=== PATIENT | male | born 1945 | race African-American/Black ===

== ENCOUNTER 2016-06-13 06:43 | Inpatient (IN) ==
[2016-06-13] MEDS ORDERED: *HR* Midazolam HCl 2 MG/2 ML VIAL ONE (07:19)
[2016-06-13] MEDS ORDERED: *HR* FentaNYL (PF) 100 MCG/2 ML VIAL ONE ×3 (07:19→10:52)
[2016-06-13] MEDS ORDERED: *HR* Propofol 200 MG/20 ML VIAL IVP ONE (07:20)
[2016-06-13] MEDS ORDERED: Vancomycin 1,500 MG in D5% in Water 250 ML IVPB ONE ×2 (07:21→19:00)
[2016-06-13] MEDS ORDERED: *HR* Succinylcholine 200 MG/10 ML VIAL IVP ONE (07:21)
[2016-06-13] MEDS ORDERED: CeFAZolin Pre 2,000 MG/100 ML 2,000 MG/100 ML BAG IVPB ONE (07:21)
[2016-06-13] MEDS ORDERED: Lidocaine -MPF 2% 2 ML VIAL ONE (07:21)
[2016-06-13] MEDS ORDERED: *HR* Phenylephrine 10 MG/ML VIAL ONE (07:23)
[2016-06-13] MEDS ORDERED: EPHEDrine 50 MG/ML VIAL ONE (07:30)
[2016-06-13] MEDS ORDERED: Ringers Solution, Lactated 1,000 ML IVC SCH (07:30)
[2016-06-13] MEDS ORDERED: *HR* Heparin 5,000 UNIT/ML VIAL ONE ×2 (07:32→10:57)
[2016-06-13] MEDS ORDERED: Lidocaine -MPF 4% 5 ML AMPUL ONE (07:36)
--- NOTE | 2016-06-13 07:36 | History & Physical Report ---
Date of Encounter: 06/13/16 Time of Encounter: 07:28 24 Hour HP Update - Instructions Instructions: If the History and Physical is less than 30 days old and was completed prior to A.M. admission and or procedure and has NOT been updated on calendar day of procedure please complete this update prior to performing procedure. - Update Patient reports changes in Medical Condition: No Changes in assessment/condition: No Changes in Medication: No Preop tests/diagnostics Reviewed: Yes Surgery Remains Indicated: Yes Consent for Planned Operative Procedure(s) Verified: Yes - Pre-Operative Checklist Preoperative Checklist Indicated: Yes Prophylactic Antibiotic Ordered: Yes (vancomycin due to mrsa risk) Home Medications Include Beta Yarely: Yes Beta Yarely Taken Today (Day of Surgery): Yes Beta Yarely Taken Yesterday (Day Prior to Surgery): Yes Is VTE Prophylaxis Indicated?: Yes
[2016-06-13] MEDS ORDERED: NiCARdipine 2.5 MG/10 ML Syringe IVPB ONE (07:45)
--- NOTE | 2016-06-13 07:49 | Anesthesia Evaluation PreOp ---
Date of Encounter: 06/13/16 Time of Encounter: 07:47 - Past History Planned Operation: r femoral endarterctomy Cardiac History: RI, HTN, Hyperlipidemia, Cardiac Surgery (3vCABG), Cardiac Stent, Other (PAD, [facility] 02/22: severe 3v cad, lv ef 54, s/p 3vCABG: medical therapy. echo: 02/22ef 55, nl rv, nl valves) Pulmonary History: LYDIA Dx [employer] History: TIA (prior to CEA, pt had confusion and l side facial parasthesias) , Other (ptsd. carotid doppler, l ica 40-59, frontal lobe dementia) Other Medical History: Renal (cri), Diabetes Type II Anesthesia History: No Prior Anesthetic Complications, Past Anesthesia (r cea, 3vcabg, acdf, le bypass) Alcohol Use: none Drug use: none Medications and Allergies Atorvastatin Calcium [Lipitor] 80 mg PO HS 02/28/16 [History] Cholecalciferol (D-3) [Vitamin D] 2,000 unit PO DAILY 02/28/16 [History] Clopidogrel [Plavix] 75 mg PO DAILY 02/28/16 [History] Docusate [Colace] 100 mg PO TID 02/28/16 [History] Donepezil [Aricept] 5 mg PO HS 02/28/16 [History] Ferrous Sulfate 325 mg PO DAILY 02/28/16 [History] Gabapentin [Neurontin] 800 mg PO BID 02/28/16 [History] Insulin ASPART [Novolog] 100 unit SQ TID 02/28/16 [History] Insulin Glargine,Hum.rec.anlog [Lantus Solostar] 55 unit SQ QAM 02/28/16 [ History] Lactobacillus Acidophilus [Acidophilus Probiotic] 1 mg PO DAILY 02/28/16 [ History] Lisinopril [Zestril] 40 mg PO DAILY 02/28/16 [History] Methyl Salicylate/Menthol [Thera-Gesic Plus Creme] 85 gm TP BID PRN 02/28/16 [ History] Metoprolol Tartrate 25 mg PO BID 02/28/16 [History] Nitroglycerin 0.4 mg SL Q5MIN PRN 02/28/16 [History] Primidone [Mysoline] 50 mg PO HS 02/28/16 [History] Ranitidine HCl [Heartburn Relief] 150 mg PO BID 02/28/16 [History] Sertraline [Zoloft] 50 mg PO DAILY 02/28/16 [History] Terbinafine HCl [Lamisil At] 24 gm TP DAILY PRN 02/28/16 [History] Trazodone HCl 150 mg PO QPM 02/28/16 [History] Acetaminophen [Tylenol] 1,000 mg PO Q6HR #90 tablet 04/17/16 [Rx] Isosorbide MONOnitrate (24 HR) [Imdur] 30 mg PO BID 04/17/16 [History] Ranolazine [Ranexa] 500 mg PO BID 04/17/16 [History] Allergies No Known Allergies Allergy (Unverified 02/14/16 09:08) - Meds/Allergy Pre-op Review Medications Reviewed: Yes Allergies Reviewed: Yes Beta Blockers on Current Med List: Yes If Beta Blockers taken, Date/Time (Last Dose taken): metoprolol at 0530 Anesthesia Results - Labs Laboratory Tests 06/11/16 06/11/16 06/11/16 11:59 11:59 11:59 Hgb 11.9 L Hct 36.7 L Plt Count 180 PT 13.1 H INR 1.2 APTT 33.1 Sodium 139 Potassium 4.6 H Creatinine 1.29 H - Imaging EKG: report reviewed (sr) Anesthesia Exam O2 Sat Height 1.78 m Height 1.78 m Height 1.78 m Weight 97.069 kg Weight 97.069 kg Weight 97.069 kg O2 Sat by Pulse Oximetry 95 O2 Sat by Pulse Oximetry 95 Vital Signs Temp Pulse Resp BP Pulse Ox 97.6 F 64 18 143/65 95 06/13/16 07:04 06/13/16 07:04 06/13/16 07:04 06/13/16 07:04 06/13/16 07:04 Blood glucose: 174 Height: 1.78 Weight: 97 NPO (# of Hours): >8 - HEENT Pupil (Motor): Pupils equal, EOMI Mallampati: III Teeth: Edentulous, Poor dentition Denture Type: Upper: Complete Oral Opening: Greater than 3 - [employer]OR LOC: Oriented [employer] Motor: Normal RUE, Normal LUE, Normal RLE, Normal LLE, Normal Face [employer]OR Sensory: Normal: RUE, LUE, RLE, LLE, Face - Cardiac Rhythm: Regular Murmur: None - Pulmonary Breath Sounds: bilateral Clear Respiratory Effort: Symmetrical Anesthesia Assess/Plan ASA Score: 4 Modified Julienne Scale for Level of Consciousness: Cooperative, oriented, and tranquil Anesthetic Plan: General Monitoring Plan: Standard Monitors, A-Line Recovery Plan: PACU
[2016-06-13] MEDS ORDERED: Vancomycin 1,000 MG VIAL ONE (08:00)
[2016-06-13] MEDS ORDERED: Heparin 1,000 UNITS/500 mL NS 500 ML ONE ×2 (08:00→08:16)
[2016-06-13] MEDS ORDERED: Ondansetron 4 MG/2 ML VIAL ONE (12:12)
[2016-06-13] MEDS ORDERED: *HR* HYDROmorphone (PF) 1 MG/ML SYRINGE IVP PRN (12:53)
--- NOTE | 2016-06-13 13:12 | Operative Note ---
Date of procedure: 06/13/16 Pre-op diagnosis: Peripheral vascular disease with disabling claudication Post-op diagnosis: same Procedure: 1. Right iliofemoral endarterectomy with bovine pericardial patch angioplasty. 2. Right superficial femoral endarterectomy with bovine pericardial patch angioplasty. 3. Right deep femoral endarterectomy. Complications: None Anesthesia: KHANG Surgeon: Irvin Shaw Estimated blood loss (cc): 100 Specimen: Right lower extremity plaque Condition: stable Disposition: PACU Procedure in Detail: Indications: The patient is a 71 year old male with multiple medical comorbidities including hypertension, hyperlipidemia, diabetes, coronary artery disease and chronic anemia. The patient also has a history of peripheral vascular disease. He reported disabling right lower extremity claudication. An angiogram revealed right extrenal iliac, common femoral, deep femoral and superficial femoral artery high grade irregular stenoses. Revascularization was recommended for symptomatic relief. Procedure: The patient was identified in the preoperative area. The risks, benefits, and alternatives of procedure were discussed and all questions were answered. He was taken to the operating room and placed in supine position on the operating room table. After the induction of general endotracheal anesthesia, he was cleaned and draped in normal sterile fashion. An oblique incision was made along the right groin sharply. Hemostasis was obtained with electrocautery. Through a process of blunt and sharp electrocautery dissection , the skin and subcutaneous tissues were incised and the mid to distal external iliac artery was dissected underneath the inguinal ligament and a vessel loop was passed around it. The common femoral artery, deep femoral artery and superficial femoral artery were dissected circumferentially and surrounded with vessel loops. The vessels were noted to be firm and heaviliy calcified. 4 separate prolene suture from prior perclose devices were present in the common femoral artery. Significant associated inflammation as a result of many prior catheterisations made dissection prolonged an difficult. The superficial femoral artery was palpated and the dissection was extended distally until it was noted to be soft without significant plaque. A vessel loop was then used to surround the artery. The patient received 5000 units of heparin intravenously and additional heparin throughout the case to maintain adequate anticoagulation. The vessels were occluded. A longitudinal arteriotomy was made sharply into the common femoral artery. It was extended under the inguinal ligament into the external iliac artery proximally. It was then extended into the superficial femoral artery distally. Using a dental freer, an endarterectomy was performed from the external iliac artery through the common femoral artery. The plaque was irregular and hevily calficied. Proximally, the lumen became patent without significant stenosis. The plaque was excised sharply and no elevated flaps were noted at the endpoint. Distally, the plaque was excised at the deep femoral artery. Using a dental freer, the plaque was circumferentially excised from the deep femoral artery using an eversion technique. Release of the loop revealed significant retrograde flow. The loop was tightened. Using the dental freer, a superficial femoral endarterectomy was performed on the irregular, high grade stenotic plaque. The dissection was continued for several centimeters until the lumen was patent without significant stenosis. The plaque was excised and no elevated flap was noted. Retrograde flow was noted through the superficial femoral artery on release of the loop. The loop was tightened. The lumen was irrigated with heparinzed saline. A bovine pericardial patch was cut to fit the defects in the external iliac, common femoral and superficial femoral arteries. The patch was sutured in place with running 6-0 Prolene. Prior to completing the patch anastomosis, each vessel was flushed individually, then reoccluded. Heparinized saline was infused into the lumen. The patch was completed and flow was restored. Thrombin and Gelfoam were used to aid in hemostasis. Polyphasic signal was noted distal to the distal end of the patch as well as the posterior tibial artery. Wound was irrigated with antibiotic-containing saline. Platelet-rich and platelet-poor plasma were infused into the wound. The wounds were reapproximated with layer of 2-0 Vicryl followed by two layers of 3-0 and Vicryl 3-0 Monocryl in the subcuticular layer. Sterile dressings were applied. The patient was extubated and taken to recovery room in stable condition.
--- NOTE | 2016-06-13 13:29 | Anesthesia Evaluation Post Op ---
Date of Encounter: 06/13/16 Time of Encounter: 13:28 - Vital Signs Vital Signs: Vital Signs/O2 Sat/Glucose, Most Current Temp Pulse Resp BP Pulse Ox 06/13/16 13:20 98.5 F 67 14 131/63 94 L 06/13/16 13:10 74 14 132/69 96 06/13/16 13:00 69 14 141/67 96 06/13/16 12:50 98.9 F 71 14 151/65 97 - Lungs Lungs: Clear Ascult./Percussion - Airway Airway: Non-obstructed - Cardiovascular Regular Rate - Mental Status Mental Status: Asleep with brisk response to light stimulation - Pain Pain Scale: 0 - Nausea Vomiting Nausea Vomiting: Not Present - Hydration Hydration: Ice chips - Discharge PostOp Status: Transfer Patient to floor
[2016-06-13] MEDS ORDERED: Clotrimazole 1% CRM 15 GM TUBE TP PRN (13:46)
[2016-06-13] MEDS ORDERED: *HR* Labetalol 20 MG/4 ML SYRINGE IVP PRN (13:46)
[2016-06-13] MEDS ORDERED: Ondansetron 4 MG/2 ML VIAL IVP PRN (13:46)
[2016-06-13] MEDS ORDERED: *HR* Promethazine 25 MG/ML VIAL IVP PRN (13:46)
[2016-06-13] MEDS ORDERED: D5% in Water 1,000 ML IV PRN (13:46)
[2016-06-13] MEDS ORDERED: *HR* Morphine 2 MG/ML SYRINGE IVP PRN (13:46)
[2016-06-13] MEDS ORDERED: Nitroglycerin 0.4 MG TAB.SUBL SL PRN (13:46)
[2016-06-13] MEDS ORDERED: Acetaminophen 325 MG TABLET PO PRN (13:46)
[2016-06-13] MEDS ORDERED: *HR* HYDROcodone/Acet 5/325 mg TABLET PO PRN (13:46)
[2016-06-13] MEDS ORDERED: Naloxone 0.4 MG/ML INJ IVP PRN (13:46)
[2016-06-13] MEDS ORDERED: Dextrose Gel 15 GM PO PRN ×2 (13:46)
[2016-06-13] MEDS ORDERED: *HR* Dextrose 50 % in Water (Syg) 50 ML SYRINGE IVP PRN (13:46)
[2016-06-13] MEDS ORDERED: ceFAZolin 2,000 MG in D5% in Water 100 ML IVPB SCH (14:30)
[2016-06-13] MEDS ORDERED: 0.9 % Sodium Chloride 1,000 ML ONE (14:42)
[2016-06-13] MEDS: ceFAZolin 2,000 MG in D5% in Water 100 ML IVPB SCH ×2 (15:56→23:30)
[2016-06-13] MEDS: Insulin LISPRO 300 UNITS/3 ML VIAL SQ SCH (16:38)
[2016-06-13] MEDS: *HR* Metoprolol 5 MG/5 ML VIAL IVP SCH ×2 (17:38→23:30)
[2016-06-13] MEDS ORDERED: *HR* Heparin 5,000 UNIT/ML VIAL SQ SCH (18:00)
[2016-06-13] MEDS ORDERED: traZODone 50 MG TABLET PO SCH (18:00)
[2016-06-13] MEDS: Gabapentin 400 MG CAPSULE PO SCH (19:23)
[2016-06-13] MEDS: Ranolazine 500 MG TAB.ER.12H PO SCH (19:23)
[2016-06-13] MEDS: Famotidine 20 MG TABLET PO SCH (19:23)
[2016-06-13] MEDS: *HR* OxyCODONE Immed Rel 5 MG TABLET PO PRN (19:30)
[2016-06-13] MEDS ORDERED: Insulin LISPRO 300 UNITS/3 ML VIAL SQ SCH (21:00)
[2016-06-14] MEDS: *HR* Metoprolol 5 MG/5 ML VIAL IVP SCH (05:29)
[2016-06-14 05:45] LABS: Basophils % 0.5 %; Eosinophils # 0.1 K/mcL (0.0-0.6); Eosinophils % 1.6 %; Hematocrit 32.2 % (37.5-50.1); Hemoglobin 10.3 g/dL (12.9-16.9); Immature Granulocytes % 0.3 % (0-4); Lymphocytes # 0.8 K/mcL (0.6-4.6); Lymphocytes % 12.3 %; Mean Corpuscular Hemoglobin 27.5 pg (28.0-33.3); Mean Corpuscular Volume 85.9 fL (83.0-100.0); Mean Platelet Volume 9.9 fL (9.4-12.4); Monocytes # 0.6 K/mcL (0.0-1.3); Monocytes % 10.4 %; Neutrophils # 4.6 K/mcL (1.6-8.9); Platelet Count 135 K/mcL (140-400); Red Blood Count 3.75 M/mcL (4.19-5.50); Red Cell Distribution Width 14.1 % (11.5-14.5); Segmented Neutrophils % 74.9 %
[2016-06-14 05:55] LABS: BUN/Creatinine Ratio 13 (6-26); Blood Urea Nitrogen 15 mg/dL (8-26); Calcium 8.4 mg/dL (8.6-10.8); Carbon Dioxide 25 mEq/L (19-29); Chloride 105 mEq/L (98-109); Glucose 182 mg/dL (70-99); Osmolality,Calculated 289 (280-300); Potassium 4.3 mEq/L (3.5-4.5); Sodium 137 mEq/L (136-145); eGFR For African Americans > 60 (> 60); eGFR For Non-African Americans > 60 (> 60)
[2016-06-14] MEDS ORDERED: *HR* Heparin 5,000 UNIT/ML VIAL SQ SCH (06:00)
--- NOTE | 2016-06-14 07:00 | Discharge Summary ---
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 He reports improvement in his symptoms. His pedal signals are present. His incision is healing without hematoma. He will be discharged today. (2) Diabetes mellitus with peripheral angiopathy without gangrene Priority: Secondary Status: Chronic Comments: He was counseled regarding atherosclerotic risk factor reduction. Qualifiers: Diabetes mellitus type: type 2 Diabetes mellitus jail insulin use: with intermediate teacher use Qualified Code(s): E11.51 - Type 2 diabetes mellitus with diabetic peripheral angiopathy without gangrene; Z79.4 - long-term (current) use of insulin (3) CAD (coronary artery disease) Priority: Secondary Status: Chronic Qualifiers: Coronary Disease-Associated Artery/Lesion type: [place] artery [place] vs. 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 He is hemodynamically stable without evidence of ongoing blood loss. - Discharge Medications Prescriptions: OxyCODONE Immed Rel [Roxicodone 5 MG] 5 mg PO Q4H PRN #40 tablet PRN Reason: postoperative pain Home Medications: Atorvastatin Calcium [Lipitor] 80 mg PO HS 02/28/16 [History] Cholecalciferol (D-3) [Vitamin D] 1,000 unit PO DAILY 02/28/16 [History] Clopidogrel [Plavix] 75 mg PO HS 02/28/16 [History] Docusate [Colace] 300 mg PO DAILY 02/28/16 [History] Donepezil [Aricept] 5 mg PO HS 02/28/16 [History] Ferrous Sulfate 325 mg PO Q48H 02/28/16 [History] Gabapentin [Neurontin] 800 mg PO BID 02/28/16 [History] Insulin ASPART [Novolog] 10 unit SQ QAM 02/28/16 [History] Insulin Glargine,Hum.rec.anlog [Lantus Solostar] 60 unit SQ QAM 02/28/16 [ History] Lisinopril [Zestril] 40 mg PO DAILY 02/28/16 [History] Metoprolol Tartrate 25 mg PO BID 02/28/16 [History] Nitroglycerin 0.4 mg SL Q5MIN PRN 02/28/16 [History] Ranitidine HCl [Heartburn Relief] 150 mg PO BID 02/28/16 [History] Sertraline [Zoloft] 50 mg PO DAILY 02/28/16 [History] Terbinafine HCl [Lamisil At] 24 gm TP DAILY PRN 02/28/16 [History] Trazodone HCl 150 mg PO QPM 02/28/16 [History] Ranolazine [Ranexa] 500 mg PO BID 04/17/16 [History] Amlodipine Besylate 10 mg PO DAILY 06/13/16 [History] Ascorbate Calcium [Vitamin C] 500 mg PO DAILY 06/13/16 [History] Insulin ASPART [NovoLOG] 14 unit SQ 1200 06/13/16 [History] Insulin ASPART [NovoLOG] 20 unit SQ QPM 06/13/16 [History] Isosorbide MONOnitrate (24 HR) [Imdur] 60 mg PO DAILY 06/13/16 [History] OxyCODONE Immed Rel [Roxicodone 5 MG] 5 mg PO Q4H PRN #40 tablet 06/14/16 [Rx] Allergies/Adverse Reactions: Allergies No Known Allergies Allergy (Verified 06/13/16 08:00) Date of admission: 06/13/16 13:45 Primary care physician: PCP TRACIE Procedure(s) Performed: Right femoral endarterectomy Discharging clinician: Irvin Shaw Anticipated date of discharge: 06/14/16 - Patient Status Disposition: Home, Self-Care Condition: Good Functional capacity at discharge: independent ambulation Overall status at discharge: patient is back to baseline - Discharge Instructions Follow Up With: [facility]Primary Care Provider[facility] - Irvin Shaw MD [Partnered Physician] - 07/30/16 2:20 pm Additional Instructions: May remove bandage and shower on 06/15/16. Wash wound gently and pat to dry. Apply dry gauze to wound daily for 7 days. No tub baths or swimming until 07/08/16. Call [phone] with questions or concerns. - Diet and Activity Activity: increase activity as tolerated Diet: diabetic diet - Hospital Course Hospital course: Mr. Pimentel is a 71 year old male with multiple medical comorbidities who was found to have peripheral vascular disease with disabling right lower extremity claudication. He underwent a right femoral endarterectomy on 06/13/16. He tolerated the procedure well. He was discharged on 06/14/16 without complications. - Time Spent with Patient Total time spent providing and/or coordinating discharge services: Exam Vital Signs, Last 4 Hours Temp Pulse Resp BP Pulse Ox 06/14/16 04:29 98.8 F 06/14/16 04:10 73 16 157/66 94 L General: Present: Conversant, No Apparent Distress HEENT: Present: Pupils equal Cardiac: Present: Reg Rate and Rhythm, Normal S1 and S2 Lungs: Present: Normal Breath Sounds, No Wheeze, Rales, Rhonchi Neuro: Present: Alert and responsive, No focal deficits noted, Motor nerves grossly intact, Sensory nerves grossly intact Abdomen: Present: Soft, Non-tender Vascular: Present: Normal capillary refill, Surgical incisions (incision clean and dry without hematoma). Absent: Cyanosis, Edema Skin: Present: No rashes noted on visualized skin - VTE Documentation of Mechanical Device: Intermittent pneumatic compression device
[2016-06-14 07:07] VITALS: BP 174/79
[2016-06-14] MEDS: Insulin LISPRO 300 UNITS/3 ML VIAL SQ SCH (08:32)
[2016-06-14] MEDS: Gabapentin 400 MG CAPSULE PO SCH (08:34)
[2016-06-14] MEDS: Ranolazine 500 MG TAB.ER.12H PO SCH (08:34)
[2016-06-14] MEDS: Famotidine 20 MG TABLET PO SCH (08:34)
[2016-06-14] MEDS ORDERED: *HR* Metoprolol 5 MG/5 ML VIAL IVP SCH (09:00)
[2016-06-14] MEDS ORDERED: Lisinopril 20 MG TABLET PO SCH (09:00)
[2016-06-14] MEDS ORDERED: Isosorbide MONOnitrate (24 HR) 60 MG TAB.ER.24H PO SCH (09:00)
[2016-06-14] MEDS ORDERED: Cholecalciferol (D-3) 1,000 UNIT TABLET PO SCH (09:00)
[2016-06-14] MEDS ORDERED: Ascorbic Acid 500 MG TABLET PO SCH (09:00)
[2016-06-14] MEDS ORDERED: amLODIPine 5 MG TABLET PO SCH (09:00)
[2016-06-14] MEDS: *HR* OxyCODONE Immed Rel 5 MG TABLET PO PRN (10:10)
== END 2016-06-14 10:30 | disposition home or self-care (01) | DRG 271 ==
LOC: SAMDAY 06:43 → 2NNU 13:45
PROVIDERS: ADMIT Surgery; ATTEND Surgery

== ENCOUNTER 2019-06-13 10:33 | Observation (INO) ==
[2019-06-13 11:07] LABS: Hematocrit 32.1 % (37.5-50.1); Hemoglobin 10.6 g/dL (12.9-16.9); Mean Corpuscular Hemoglobin 28.9 pg (28.0-33.3); Mean Corpuscular Volume 87.5 fL (83.0-100.0); Mean Platelet Volume 10.4 fL (9.4-12.4); Platelet Count 143 K/mcL (140-400); Red Blood Count 3.67 M/mcL (4.19-5.50); Red Cell Distribution Width 13.9 % (11.5-14.5); White Blood Count 5.1 K/mcL (4.3-11.1)
[2019-06-13] MEDS ORDERED: Isovue-370 500 ML BOTTLE IVP ONE (11:14)
[2019-06-13 11:30] LABS: BUN/Creatinine Ratio 21 (6-26); Blood Urea Nitrogen 29 mg/dL (8-23); Calcium 8.4 mg/dL (8.6-10.3); Carbon Dioxide 28 mEq/L (23-29); Chloride 102 mEq/L (98-107); Glucose 341 mg/dL (70-105); Osmolality,Calculated 299 (280-300); Potassium 4.9 mEq/L (3.5-5.1); Sodium 135 mEq/L (136-145); Troponin I < 0.03 ng/mL (< 0.04); eGFR For African Americans > 60 (> 60); eGFR For Non-African Americans 51 (> 60)
[2019-06-13 11:33] LABS: INR 1.3; Prothrombin Time 14.3 Seconds (9.4-12.1)
[2019-06-13 11:35] LABS: Activated Partial Thrombo Time 34.6 Seconds (26.0-36.0)
[2019-06-13] MEDS ORDERED: Acetaminophen 325 MG TABLET PO PRN (14:20)
[2019-06-13] MEDS ORDERED: Ondansetron 4 MG/2 ML VIAL IVP PRN (14:20)
[2019-06-13] MEDS: traZODone 50 MG TABLET PO SCH (18:32)
[2019-06-13] MEDS: Famotidine 20 MG TABLET PO SCH (18:33)
[2019-06-13] MEDS: *HR* Heparin 5,000 UNIT/ML VIAL SQ SCH (21:22)
[2019-06-13] MEDS: Ranolazine 500 MG TAB.ER.12H PO SCH (21:22)
[2019-06-13] MEDS: Insulin DETEMIR 100 UNIT/ML X5UNITS SQ SCH (21:38)
[2019-06-13] MEDS ORDERED: D5% in Water 1,000 ML IVC PRN (23:39)
[2019-06-13] MEDS ORDERED: *HR* Dextrose 50 % in Water (Syg) 50 ML SYRINGE IVP PRN (23:39)
[2019-06-13] MEDS ORDERED: Dextrose Gel 15 GM/37.5 ML TUBE PO PRN ×2 (23:39)
[2019-06-14] MEDS: Insulin LISPRO 300 UNITS/3 ML VIAL SQ SCH ×5 (00:15→21:32)
[2019-06-14 05:36] LABS: Hematocrit 34.5 % (37.5-50.1); Mean Corpuscular HGB Conc 31.9 g/dL (31.6-35.5); Mean Corpuscular Hemoglobin 28.4 pg (28.0-33.3); Mean Corpuscular Volume 88.9 fL (83.0-100.0); Mean Platelet Volume 10.6 fL (9.4-12.4); Platelet Count 150 K/mcL (140-400); Red Blood Count 3.88 M/mcL (4.19-5.50); Red Cell Distribution Width 14.1 % (11.5-14.5); White Blood Count 4.7 K/mcL (4.3-11.1)
[2019-06-14] MEDS: *HR* Heparin 5,000 UNIT/ML VIAL SQ SCH ×3 (05:48→21:11)
[2019-06-14 06:05] LABS: BUN/Creatinine Ratio 18 (6-26); Blood Urea Nitrogen 19 mg/dL (8-23); Carbon Dioxide 26 mEq/L (23-29); Chloride 105 mEq/L (98-107); Cholesterol 95 mg/dL (< 200); Glucose 129 mg/dL (70-105); HDL Cholesterol 19 mg/dL (40-59); LDL Cholesterol,Calculated 34 mg/dL (0-99); Magnesium 1.9 mg/dL (1.6-2.6); Osmolality,Calculated 294 (280-300); Sodium 140 mEq/L (136-145); Triglycerides 212 mg/dL (< 150); Troponin I < 0.03 ng/mL (< 0.04); eGFR For African Americans > 60 (> 60); eGFR For Non-African Americans > 60 (> 60)
[2019-06-14] MEDS: Ranolazine 500 MG TAB.ER.12H PO SCH ×2 (09:24→21:19)
[2019-06-14] MEDS: amLODIPine 5 MG TABLET PO SCH (09:24)
[2019-06-14] MEDS: Famotidine 20 MG TABLET PO SCH ×2 (09:24→16:29)
[2019-06-14] MEDS: Isosorbide MONOnitrate (24 HR) 60 MG TAB.ER.24H PO SCH (09:24)
[2019-06-14] MEDS ORDERED: Perflutren Lipid Microsphere 1.3 ML in 0.9 % Sodium Chloride 8.7 ML IVP ONE (10:33)
[2019-06-14] MEDS: traZODone 50 MG TABLET PO SCH (21:10)
[2019-06-14] MEDS: Insulin DETEMIR 100 UNIT/ML X5UNITS SQ SCH (21:19)
[2019-06-15] MEDS: Insulin LISPRO 300 UNITS/3 ML VIAL SQ SCH ×2 (00:26→08:30)
[2019-06-15] MEDS: *HR* Heparin 5,000 UNIT/ML VIAL SQ SCH (06:02)
[2019-06-15] MEDS: Famotidine 20 MG TABLET PO SCH (08:30)
[2019-06-15 08:33] VITALS: BP 150/91
[2019-06-15] MEDS: Ranolazine 500 MG TAB.ER.12H PO SCH (08:36)
[2019-06-15] MEDS: amLODIPine 5 MG TABLET PO SCH (08:36)
[2019-06-15] MEDS: Isosorbide MONOnitrate (24 HR) 60 MG TAB.ER.24H PO SCH (08:36)
== END 2019-06-15 09:45 ==
LOC: EMEROOARM 10:33 → 3ANU 10:33 → SUATTDRO 15:16 → 3ANU 15:36
PROVIDERS: ADMIT Internal Medicine; ATTEND Internal Medicine

== ENCOUNTER 2019-08-11 22:49 | Inpatient (IN) ==
[2019-08-11 23:31] LABS: Basophils % 0.4 %; Eosinophils # 0.1 K/mcL (0.0-0.6); Eosinophils % 0.7 %; Hematocrit 33.1 % (37.5-50.1); Hemoglobin 10.2 g/dL (12.9-16.9); Immature Granulocytes % 0.4 % (0-4); Lymphocytes # 0.9 K/mcL (0.6-4.6); Lymphocytes % 12.1 %; Mean Corpuscular HGB Conc 30.8 g/dL (31.6-35.5); Mean Corpuscular Hemoglobin 26.8 pg (28.0-33.3); Mean Corpuscular Volume 86.9 fL (83.0-100.0); Monocytes # 0.8 K/mcL (0.0-1.3); Monocytes % 10.9 %; Neutrophils # 5.8 K/mcL (1.6-8.9); Platelet Count 172 K/mcL (140-400); Red Blood Count 3.81 M/mcL (4.19-5.50); Red Cell Distribution Width 14.9 % (11.5-14.5); Segmented Neutrophils % 75.5 %; White Blood Count 7.6 K/mcL (4.3-11.1)
[2019-08-11 23:39] LABS: INR 1.3; Prothrombin Time 14.4 Seconds (9.4-12.1)
[2019-08-11 23:52] LABS: Alanine Aminotransferase 12 Units/L (7-52); Albumin 3.7 g/dL (3.5-5.7); Albumin/Globulin Ratio 1.3 (1.1-2.2); Alkaline Phosphatase 43 Units/L (34-104); Aspartate Amino Transferase 18 Units/L (13-39); BUN/Creatinine Ratio 28 (6-26); Bilirubin,Total 0.5 mg/dL (0.3-1.0); Blood Urea Nitrogen 31 mg/dL (8-23); Calcium 8.9 mg/dL (8.6-10.3); Carbon Dioxide 27 mEq/L (23-29); Chloride 108 mEq/L (98-107); Globulin 2.9 g/dL (2.4-3.5); Glucose 166 mg/dL (70-105); Osmolality,Calculated 304 (280-300); Potassium 3.7 mEq/L (3.5-5.1); Sodium 142 mEq/L (136-145); Total Protein 6.6 g/dL (6.4-8.9); eGFR For African Americans > 60 (> 60); eGFR For Non-African Americans > 60 (> 60)
[2019-08-11 23:55] LABS: Troponin I 0.15 ng/mL (< 0.04)
[2019-08-12] MEDS ORDERED: Ondansetron 4 MG/2 ML VIAL IVP PRN (00:04)
[2019-08-12] MEDS ORDERED: Naloxone 0.4 MG/ML INJ IVP PRN (00:04)
[2019-08-12] MEDS ORDERED: Aspirin 325 MG TABLET PO ONE (00:08)
[2019-08-12 00:40] LABS: Bilirubin,Urine Moderate (Negative); Blood,Urine Negative (Negative); Clarity,Urine Clear (Clear); Color,Urine Dark Yellow (Yellow); Glucose,Urine (UA) Normal (Normal); Ketones,Urine 15 mg/dL (Negative); Leukocyte Esterase,Urine Small (Negative); Nitrite,Urine Negative (Negative); PH,Urine 5.5 pH Units (5.0-8.0); Protein,Urine 30 mg/dL (Neg-Trace); Specific Gravity,Urine > 1.030 (1.010-1.025); Urobilinogen,Urine Normal (Normal)
[2019-08-12] MEDS ORDERED: Dextrose Gel 15 GM/37.5 ML TUBE PO PRN ×2 (00:41)
[2019-08-12] MEDS ORDERED: *HR* Dextrose 50 % in Water (Syg) 50 ML SYRINGE IVP PRN (00:41)
[2019-08-12] MEDS ORDERED: D5% in Water 1,000 ML IVC PRN (00:41)
[2019-08-12 00:43] LABS: Bacteria,Urine None Seen per hpf (None-Few); Hyaline Casts,Urine None Seen per lpf (None-Few); Squamous Epithelial Cell,Urine Moderate per lpf (None-Few); WBC,Urine 0-3 per hpf (0-3)
[2019-08-12] MEDS: Ringers Solution, Lactated 1,000 ML IVC SCH ×2 (02:30→16:34)
[2019-08-12 05:47] LABS: Basophils % 0.3 %; Eosinophils # 0.1 K/mcL (0.0-0.6); Eosinophils % 0.8 %; Hematocrit 29.2 % (37.5-50.1); Hemoglobin 9.1 g/dL (12.9-16.9); Immature Granulocytes % 0.3 % (0-4); Lymphocytes # 1.1 K/mcL (0.6-4.6); Lymphocytes % 16.1 %; Mean Corpuscular HGB Conc 31.2 g/dL (31.6-35.5); Mean Corpuscular Hemoglobin 27.2 pg (28.0-33.3); Mean Corpuscular Volume 87.2 fL (83.0-100.0); Mean Platelet Volume 9.8 fL (9.4-12.4); Monocytes # 0.8 K/mcL (0.0-1.3); Monocytes % 12.1 %; Neutrophils # 4.6 K/mcL (1.6-8.9); Platelet Count 141 K/mcL (140-400); Red Blood Count 3.35 M/mcL (4.19-5.50); Red Cell Distribution Width 14.9 % (11.5-14.5); Segmented Neutrophils % 70.4 %; White Blood Count 6.5 K/mcL (4.3-11.1)
[2019-08-12 06:10] LABS: BUN/Creatinine Ratio 29 (6-26); Blood Urea Nitrogen 32 mg/dL (8-23); Calcium 8.6 mg/dL (8.6-10.3); Carbon Dioxide 29 mEq/L (23-29); Chloride 109 mEq/L (98-107); Glucose 158 mg/dL (70-105); Magnesium 2.2 mg/dL (1.6-2.6); Osmolality,Calculated 306 (280-300); Sodium 143 mEq/L (136-145); eGFR For African Americans > 60 (> 60); eGFR For Non-African Americans > 60 (> 60)
[2019-08-12] MEDS ORDERED: Insulin LISPRO 300 UNITS/3 ML VIAL SQ SCH ×2 (07:30→21:00)
[2019-08-12] MEDS ORDERED: Lactulose Oral Soln 20 GM/30 ML UDC PO PRN (07:56)
[2019-08-12] MEDS ORDERED: Metoprolol XL (24 HR) Succ 25 MG TAB.ER.24H PO SCH (09:00)
[2019-08-12] MEDS: Ranolazine 500 MG TAB.ER.12H PO SCH ×2 (09:17→22:38)
[2019-08-12] MEDS: Artificial Tears SOLN 15 ML BOTTLE BOTH EYES SCH ×4 (09:24→22:37)
[2019-08-12] MEDS: Insulin LISPRO 300 UNITS/3 ML VIAL SQ SCH ×3 (09:24→17:32)
[2019-08-12] MEDS ORDERED: Haloperidol Lactate 5 MG/ML VIAL IVP PRN (11:02)
[2019-08-12 12:43] LABS: Adenovirus Not Detected (Not Detect); Bordetella Pertussis Not Detected (Not Detect); Chlamydophila pneumoniae Not Detected (Not Detect); Coronavirus 229E Not Detected (Not Detect); Coronavirus HKU1 Not Detected (Not Detect); Coronavirus NL63 Not Detected (Not Detect); Coronavirus OC43 Not Detected (Not Detect); Human Metapneumovirus Not Detected (Not Detect); Human Rhinovirus/Enterovirus Not Detected (Not Detect); Influenza A Subtype 2009 H1 Not Detected (Not Detect); Influenza B Not Detected (Not Detect); Mycoplasma pneumoniae Not Detected (Not Detect); Parainfluenza Virus 1 Not Detected (Not Detect); Parainfluenza Virus 2 Not Detected (Not Detect); Parainfluenza Virus 3 Not Detected (Not Detect); Parainfluenza Virus 4 Not Detected (Not Detect); Respiratory Syncytial Virus Not Detected (Not Detect)
[2019-08-12] MEDS ORDERED: Morphine Sulfate 2 MG/ML SYRINGE IVP ONE (20:17)
[2019-08-13] MEDS: Insulin LISPRO 300 UNITS/3 ML VIAL SQ SCH ×5 (02:02→20:51)
[2019-08-13 02:37] LABS: Basophils % 0.5 %; Eosinophils # 0.1 K/mcL (0.0-0.6); Eosinophils % 1.4 %; Hemoglobin 8.6 g/dL (12.9-16.9); Immature Granulocytes % 0.3 % (0-4); Lymphocytes # 0.8 K/mcL (0.6-4.6); Lymphocytes % 13.7 %; Mean Corpuscular HGB Conc 30.7 g/dL (31.6-35.5); Mean Corpuscular Hemoglobin 27.6 pg (28.0-33.3); Mean Corpuscular Volume 89.7 fL (83.0-100.0); Mean Platelet Volume 9.6 fL (9.4-12.4); Monocytes # 0.7 K/mcL (0.0-1.3); Monocytes % 11.7 %; Neutrophils # 4.2 K/mcL (1.6-8.9); Platelet Count 128 K/mcL (140-400); Red Blood Count 3.12 M/mcL (4.19-5.50); Segmented Neutrophils % 72.4 %; White Blood Count 5.8 K/mcL (4.3-11.1)
[2019-08-13 03:04] LABS: BUN/Creatinine Ratio 33 (6-26); Blood Urea Nitrogen 28 mg/dL (8-23); Calcium 8.6 mg/dL (8.6-10.3); Carbon Dioxide 28 mEq/L (23-29); Chloride 112 mEq/L (98-107); Glucose 127 mg/dL (70-105); Magnesium 2.1 mg/dL (1.6-2.6); Osmolality,Calculated 307 (280-300); Phosphorous 3.3 mg/dL (2.7-4.5); Potassium 4.2 mEq/L (3.5-5.1); Sodium 145 mEq/L (136-145); eGFR For African Americans > 60 (> 60); eGFR For Non-African Americans > 60 (> 60)
[2019-08-13] MEDS: *HR* Metoprolol 5 MG/5 ML VIAL IVP SCH ×2 (04:53→17:54)
[2019-08-13] MEDS: Artificial Tears SOLN 15 ML BOTTLE BOTH EYES SCH ×4 (07:14→21:02)
[2019-08-13] MEDS: Ranolazine 500 MG TAB.ER.12H PO SCH ×2 (07:15→20:44)
[2019-08-13] MEDS ORDERED: Isosorbide MONOnitrate (24 HR) 30 MG TAB.ER.24H PO SCH (09:00)
[2019-08-13] MEDS ORDERED: Aspirin 81 MG TAB.CHEW PO SCH (09:00)
[2019-08-13] MEDS ORDERED: QUEtiapine Fumarate 25 MG TABLET PO PRN ×2 (13:44→19:17)
[2019-08-13] MEDS ORDERED: MOM Conc 10 ML UD.LIQ PO PRN ×3 (13:44→19:17)
[2019-08-13] MEDS ORDERED: Haloperidol Lactate 5 MG/ML VIAL IM PRN ×2 (13:44→19:17)
[2019-08-13] MEDS ORDERED: *HR* FentaNYL (PF) 100 MCG/2 ML VIAL ONE ×2 (15:49→17:43)
[2019-08-13] MEDS ORDERED: *HR* Propofol 200 MG/20 ML VIAL IVP ONE (15:49)
[2019-08-13] MEDS ORDERED: CeFAZolin Syr 2,000MG/20 ML 2,000 MG/20 ML SYRINGE IVPB ONE (16:02)
[2019-08-13] MEDS ORDERED: Ethanol\\Acetic Acid\\Na Ace\\Ben 1,000 ML IRRIG.SOLN IR ONE (16:05)
[2019-08-13] MEDS ORDERED: Ondansetron 4 MG/2 ML VIAL IVP ONE (16:11)
[2019-08-13] MEDS ORDERED: *HR* Promethazine 25 MG/ML VIAL IVP PRN ×2 (16:11→19:17)
[2019-08-13] MEDS ORDERED: *HR* HYDROmorphone PF 0.5 MG/0.5 ML SYRINGE IVP PRN (16:11)
[2019-08-13] MEDS ORDERED: *HR* OxyCODONE Immed Rel 5 MG TABLET PO PRN (16:11)
[2019-08-13] MEDS ORDERED: Lidocaine -MPF 2% 2 ML VIAL ONE (16:19)
[2019-08-13] MEDS ORDERED: *HR* Rocuronium Bromide 50 MG/5 ML VIAL ONE (16:19)
[2019-08-13] MEDS ORDERED: Lidocaine HCL 4 ML Topical Solution (Laryng-O-Jet Kit Sterile Pak) TP ONE (16:19)
[2019-08-13] MEDS ORDERED: EPHEDrine 50 MG/ML VIAL ONE (16:48)
[2019-08-13] MEDS ORDERED: *HR* Metoprolol 5 MG/5 ML VIAL IVP ONE (17:08)
[2019-08-13] MEDS ORDERED: Acetaminophen IV 1,000 MG/100 ML INFUS..BTL ONE (17:23)
[2019-08-13] MEDS ORDERED: Sennosides 8.6 MG TABLET PO PRN (19:17)
[2019-08-13] MEDS ORDERED: Naloxone 0.4 MG/ML INJ IVP PRN ×2 (19:17)
[2019-08-13] MEDS ORDERED: D5% in Water 1,000 ML IVC PRN (19:17)
[2019-08-13] MEDS ORDERED: Lactulose Oral Soln 20 GM/30 ML UDC PO PRN (19:17)
[2019-08-13] MEDS ORDERED: Ondansetron 4 MG/2 ML VIAL IVP PRN ×2 (19:17)
[2019-08-13] MEDS ORDERED: Ringers Solution, Lactated 1,000 ML IVC SCH (19:17)
[2019-08-13] MEDS ORDERED: Dextrose Gel 15 GM/37.5 ML TUBE PO PRN ×2 (19:17)
[2019-08-13] MEDS ORDERED: Haloperidol Lactate 5 MG/ML VIAL IVP PRN (19:17)
[2019-08-13] MEDS ORDERED: *HR* Dextrose 50 % in Water (Syg) 50 ML SYRINGE IVP PRN (19:17)
[2019-08-13 20:40] LABS: Hematocrit 26.1 % (37.5-50.1); Hemoglobin 7.9 g/dL (12.9-16.9)
[2019-08-13] MEDS: Melatonin 3 MG TABLET PO SCH (20:44)
[2019-08-13] MEDS: Sennosides 8.6 MG TABLET PO SCH (20:45)
[2019-08-13] MEDS: QUEtiapine Fumarate 25 MG TABLET PO SCH (20:45)
[2019-08-13] MEDS: Ascorbic Acid 500 MG TABLET PO SCH (20:50)
[2019-08-13] MEDS ORDERED: QUEtiapine Fumarate 25 MG TABLET PO SCH (21:00)
[2019-08-13] MEDS ORDERED: Melatonin 3 MG TABLET PO SCH (21:00)
[2019-08-13] MEDS ORDERED: Sennosides 8.6 MG TABLET PO SCH (21:00)
[2019-08-13] MEDS ORDERED: Divalproex (24 HR) 500 MG TABLET PO SCH ×2 (21:00)
[2019-08-13] MEDS: Divalproex Sodium 125 MG CAPSULE PO SCH (21:14)
[2019-08-13] MEDS: ceFAZolin 2,000 MG in 0.9 % Sodium Chloride 100 ML IVPB SCH (23:08)
[2019-08-14] MEDS ORDERED: Insulin LISPRO 300 UNITS/3 ML VIAL SQ SCH
[2019-08-14 06:17] LABS: Hematocrit 22.1 % (37.5-50.1); Hemoglobin 6.8 g/dL (12.9-16.9); Mean Corpuscular HGB Conc 30.8 g/dL (31.6-35.5); Mean Corpuscular Hemoglobin 27.3 pg (28.0-33.3); Mean Corpuscular Volume 88.8 fL (83.0-100.0); Mean Platelet Volume 10.1 fL (9.4-12.4); Platelet Count 119 K/mcL (140-400); Red Blood Count 2.49 M/mcL (4.19-5.50); Red Cell Distribution Width 15.2 % (11.5-14.5); White Blood Count 7.1 K/mcL (4.3-11.1)
[2019-08-14 06:40] LABS: BUN/Creatinine Ratio 31 (6-26); Blood Urea Nitrogen 28 mg/dL (8-23); Calcium 8.3 mg/dL (8.6-10.3); Carbon Dioxide 28 mEq/L (23-29); Chloride 109 mEq/L (98-107); Glucose 145 mg/dL (70-105); Osmolality,Calculated 304 (280-300); Potassium 4.6 mEq/L (3.5-5.1); Sodium 143 mEq/L (136-145); eGFR For African Americans > 60 (> 60); eGFR For Non-African Americans > 60 (> 60)
[2019-08-14] MEDS: Insulin LISPRO 300 UNITS/3 ML VIAL SQ SCH ×4 (07:17→20:53)
[2019-08-14] MEDS ORDERED: 0.9 % Sodium Chloride 250 ML IVC SCH (07:45)
[2019-08-14] MEDS ORDERED: Aminoglycoside Consult 1 EACH MC ONE (08:19)
[2019-08-14] MEDS ORDERED: Rivastigmine Patch 9.5 MG PATCH.TD24 TD SCH (09:00)
[2019-08-14] MEDS ORDERED: Aspirin 81 MG TAB.CHEW PO SCH (09:00)
[2019-08-14] MEDS: Rivastigmine Patch 9.5 MG PATCH.TD24 TD SCH (09:08)
[2019-08-14] MEDS: Multivit/Ca/Min/Fe/FA 1 TAB TABLET PO SCH (09:09)
[2019-08-14] MEDS: Ranolazine 500 MG TAB.ER.12H PO SCH ×2 (09:09→20:54)
[2019-08-14] MEDS: Metoprolol XL (24 HR) Succ 25 MG TAB.ER.24H PO SCH (09:10)
[2019-08-14] MEDS: QUEtiapine Fumarate 25 MG TABLET PO SCH ×2 (09:10→20:54)
[2019-08-14] MEDS: Isosorbide MONOnitrate (24 HR) 30 MG TAB.ER.24H PO SCH (09:10)
[2019-08-14] MEDS: Ascorbic Acid 500 MG TABLET PO SCH ×2 (09:10→17:23)
[2019-08-14] MEDS: ceFAZolin 2,000 MG in 0.9 % Sodium Chloride 100 ML IVPB SCH (11:43)
[2019-08-14] MEDS: Artificial Tears SOLN 15 ML BOTTLE BOTH EYES SCH ×3 (12:27→20:52)
[2019-08-14 15:44] LABS: Hematocrit 28.5 % (37.5-50.1)
[2019-08-14 15:48] LABS: Hemoglobin 8.4 g/dL (12.9-16.9)
[2019-08-14] MEDS: Aspirin Enteric Coated 81 MG Tablet PO SCH (17:23)
[2019-08-14] MEDS ORDERED: Furosemide 40 MG/4 ML VIAL IVP ONE (18:19)
[2019-08-14] MEDS ORDERED: Acetaminophen IV 1,000 MG/100 ML INFUS..BTL IVPB ONE (19:55)
[2019-08-14] MEDS ORDERED: 0.9 % Sodium Chloride 1,000 ML IVC SCH (20:45)
[2019-08-14] MEDS: Sennosides 8.6 MG TABLET PO SCH (20:53)
[2019-08-14] MEDS: Melatonin 3 MG TABLET PO SCH (20:54)
[2019-08-14] MEDS: Divalproex Sodium 125 MG CAPSULE PO SCH (20:54)
[2019-08-15] MEDS ORDERED: Piperacillin/Tazobactam 3.375 GM in 0.9 % Sodium Chloride Mini Bag 100 ML IVPB SCH
[2019-08-15 01:48] LABS: Basophils % 0.1 %; Eosinophils % 0.1 %; Hematocrit 24.3 % (37.5-50.1); Hemoglobin 7.9 g/dL (12.9-16.9); Immature Granulocytes % 0.5 % (0-4); Lymphocytes # 0.7 K/mcL (0.6-4.6); Lymphocytes % 9.2 %; Mean Corpuscular HGB Conc 32.5 g/dL (31.6-35.5); Mean Corpuscular Hemoglobin 28.7 pg (28.0-33.3); Mean Corpuscular Volume 88.4 fL (83.0-100.0); Mean Platelet Volume 10.4 fL (9.4-12.4); Monocytes # 1.2 K/mcL (0.0-1.3); Monocytes % 15.4 %; Platelet Count 118 K/mcL (140-400); Red Blood Count 2.75 M/mcL (4.19-5.50); Red Cell Distribution Width 14.6 % (11.5-14.5); Segmented Neutrophils % 74.7 %; White Blood Count 8.1 K/mcL (4.3-11.1)
[2019-08-15 01:58] LABS: BUN/Creatinine Ratio 28 (6-26); Blood Urea Nitrogen 31 mg/dL (8-23); Carbon Dioxide 25 mEq/L (23-29); Chloride 110 mEq/L (98-107); Glucose 158 mg/dL (70-105); Magnesium 2.1 mg/dL (1.6-2.6); Osmolality,Calculated 306 (280-300); Phosphorous 2.9 mg/dL (2.7-4.5); Potassium 3.8 mEq/L (3.5-5.1); Sodium 143 mEq/L (136-145); eGFR For African Americans > 60 (> 60); eGFR For Non-African Americans > 60 (> 60)
[2019-08-15] MEDS: Aspirin Enteric Coated 81 MG Tablet PO SCH (08:55)
[2019-08-15] MEDS: Ascorbic Acid 500 MG TABLET PO SCH ×2 (08:55→17:08)
[2019-08-15] MEDS: Rivastigmine Patch 9.5 MG PATCH.TD24 TD SCH (08:55)
[2019-08-15] MEDS: Metoprolol XL (24 HR) Succ 25 MG TAB.ER.24H PO SCH (08:56)
[2019-08-15] MEDS: Isosorbide MONOnitrate (24 HR) 30 MG TAB.ER.24H PO SCH (08:56)
[2019-08-15] MEDS: QUEtiapine Fumarate 25 MG TABLET PO SCH ×2 (08:57→20:11)
[2019-08-15] MEDS: Multivit/Ca/Min/Fe/FA 1 TAB TABLET PO SCH (08:58)
[2019-08-15] MEDS: Ranolazine 500 MG TAB.ER.12H PO SCH ×2 (08:58→20:11)
[2019-08-15] MEDS: Insulin LISPRO 300 UNITS/3 ML VIAL SQ SCH ×4 (09:26→20:09)
[2019-08-15] MEDS: Artificial Tears SOLN 15 ML BOTTLE BOTH EYES SCH ×4 (09:26→20:08)
[2019-08-15 09:35] LABS: Bilirubin,Urine Negative (Negative); Blood,Urine Trace (Negative); Clarity,Urine Cloudy (Clear); Color,Urine Dark Yellow (Yellow); Glucose,Urine (UA) Normal (Normal); Ketones,Urine Trace mg/dL (Negative); Leukocyte Esterase,Urine Negative (Negative); Nitrite,Urine Negative (Negative); PH,Urine 5.5 pH Units (5.0-8.0); Protein,Urine 30 mg/dL (Neg-Trace); Specific Gravity,Urine > 1.030 (1.010-1.025); Urobilinogen,Urine Normal (Normal)
[2019-08-15 09:37] LABS: Bacteria,Urine None Seen per hpf (None-Few); Squamous Epithelial Cell,Urine Many per lpf (None-Few); WBC,Urine 15-30 per hpf (0-3)
[2019-08-15 16:17] LABS: Hematocrit 27.1 % (37.5-50.1); Hemoglobin 8.5 g/dL (12.9-16.9)
[2019-08-15] MEDS: Furosemide 20 MG/2 ML VIAL IVP SCH (17:10)
[2019-08-15] MEDS: Melatonin 3 MG TABLET PO SCH (20:10)
[2019-08-15] MEDS: Divalproex Sodium 125 MG CAPSULE PO SCH (20:11)
[2019-08-15] MEDS: Sennosides 8.6 MG TABLET PO SCH (20:11)
[2019-08-16 05:22] LABS: Hematocrit 23.2 % (37.5-50.1); Hemoglobin 7.4 g/dL (12.9-16.9)
[2019-08-16 05:42] LABS: BUN/Creatinine Ratio 38 (6-26); Blood Urea Nitrogen 36 mg/dL (8-23); Calcium 8.1 mg/dL (8.6-10.3); Carbon Dioxide 29 mEq/L (23-29); Chloride 108 mEq/L (98-107); Glucose 143 mg/dL (70-105); Magnesium 2.2 mg/dL (1.6-2.6); Osmolality,Calculated 307 (280-300); Phosphorous 2.3 mg/dL (2.7-4.5); Potassium 3.8 mEq/L (3.5-5.1); Sodium 143 mEq/L (136-145); eGFR For African Americans > 60 (> 60); eGFR For Non-African Americans > 60 (> 60)
[2019-08-16] MEDS ORDERED: Isovue-370 500 ML BOTTLE IVP ONE (07:47)
[2019-08-16] MEDS ORDERED: Furosemide 40 MG/4 ML VIAL IVP SCH (09:00)
[2019-08-16] MEDS: Insulin LISPRO 300 UNITS/3 ML VIAL SQ SCH ×4 (09:07→23:35)
[2019-08-16] MEDS: Furosemide 20 MG/2 ML VIAL IVP SCH ×2 (09:12→17:40)
[2019-08-16] MEDS: Rivastigmine Patch 9.5 MG PATCH.TD24 TD SCH (09:19)
[2019-08-16] MEDS: Isosorbide MONOnitrate (24 HR) 30 MG TAB.ER.24H PO SCH (09:21)
[2019-08-16] MEDS: Aspirin Enteric Coated 81 MG Tablet PO SCH (09:21)
[2019-08-16] MEDS: Multivit/Ca/Min/Fe/FA 1 TAB TABLET PO SCH (09:22)
[2019-08-16] MEDS: Metoprolol XL (24 HR) Succ 25 MG TAB.ER.24H PO SCH (09:22)
[2019-08-16] MEDS: Ranolazine 500 MG TAB.ER.12H PO SCH ×2 (09:22→23:33)
[2019-08-16] MEDS: Ascorbic Acid 500 MG TABLET PO SCH ×2 (09:22→17:41)
[2019-08-16] MEDS: QUEtiapine Fumarate 25 MG TABLET PO SCH ×2 (09:23→23:32)
[2019-08-16] MEDS: Artificial Tears SOLN 15 ML BOTTLE BOTH EYES SCH ×4 (09:23→23:35)
[2019-08-16 20:40] LABS: Hematocrit 33.6 % (37.5-50.1)
[2019-08-16 20:41] LABS: Hemoglobin 10.9 g/dL (12.9-16.9)
[2019-08-16] MEDS: Melatonin 3 MG TABLET PO SCH (23:31)
[2019-08-16] MEDS: Sennosides 8.6 MG TABLET PO SCH (23:33)
[2019-08-16] MEDS: Divalproex Sodium 125 MG CAPSULE PO SCH (23:34)
[2019-08-17] MEDS: Metoprolol XL (24 HR) Succ 25 MG TAB.ER.24H PO SCH (05:34)
[2019-08-17 06:06] LABS: BUN/Creatinine Ratio 43 (6-26); Blood Urea Nitrogen 35 mg/dL (8-23); Calcium 8.3 mg/dL (8.6-10.3); Carbon Dioxide 27 mEq/L (23-29); Chloride 107 mEq/L (98-107); Glucose 165 mg/dL (70-105); Magnesium 2.3 mg/dL (1.6-2.6); Osmolality,Calculated 304 (280-300); Phosphorous 2.3 mg/dL (2.7-4.5); Potassium 3.6 mEq/L (3.5-5.1); Sodium 141 mEq/L (136-145); eGFR For African Americans > 60 (> 60); eGFR For Non-African Americans > 60 (> 60)
[2019-08-17] MEDS: Isosorbide MONOnitrate (24 HR) 30 MG TAB.ER.24H PO SCH (09:05)
[2019-08-17] MEDS: Multivit/Ca/Min/Fe/FA 1 TAB TABLET PO SCH (09:06)
[2019-08-17] MEDS: Ranolazine 500 MG TAB.ER.12H PO SCH ×2 (09:06→22:20)
[2019-08-17] MEDS: QUEtiapine Fumarate 25 MG TABLET PO SCH ×2 (09:06→22:20)
[2019-08-17] MEDS: Insulin LISPRO 300 UNITS/3 ML VIAL SQ SCH ×4 (09:06→21:00)
[2019-08-17] MEDS: Ascorbic Acid 500 MG TABLET PO SCH ×2 (09:06→17:01)
[2019-08-17] MEDS: Artificial Tears SOLN 15 ML BOTTLE BOTH EYES SCH ×4 (09:07→22:22)
[2019-08-17] MEDS: Furosemide 20 MG/2 ML VIAL IVP SCH ×2 (09:07→17:01)
[2019-08-17 09:27] LABS: Hematocrit 30.8 % (37.5-50.1); Hemoglobin 9.9 g/dL (12.9-16.9)
[2019-08-17] MEDS: Rivastigmine Patch 9.5 MG PATCH.TD24 TD SCH (10:37)
[2019-08-17] MEDS: DilTIAZem CD (24hr) 120 MG CAP.ER.24H PO SCH (10:37)
[2019-08-17] MEDS: DilTIAZem 50 MG in 0.9 % Sodium Chloride 40 ML IVC SCH ×2 (12:02→16:12)
[2019-08-17] MEDS ORDERED: Metoprolol XL (24 HR) Succ 50 MG TAB.ER.24H PO ONE (16:20)
[2019-08-17] MEDS: Divalproex Sodium 125 MG CAPSULE PO SCH (22:20)
[2019-08-17] MEDS: Sennosides 8.6 MG TABLET PO SCH (22:20)
[2019-08-17] MEDS: Melatonin 3 MG TABLET PO SCH (22:21)
[2019-08-18 05:02] LABS: Basophils % 0.3 %; Eosinophils # 0.1 K/mcL (0.0-0.6); Hematocrit 31.4 % (37.5-50.1); Lymphocytes # 0.7 K/mcL (0.6-4.6); Lymphocytes % 10.4 %; Mean Corpuscular HGB Conc 31.8 g/dL (31.6-35.5); Mean Corpuscular Hemoglobin 27.8 pg (28.0-33.3); Mean Corpuscular Volume 87.2 fL (83.0-100.0); Mean Platelet Volume 9.7 fL (9.4-12.4); Monocytes # 0.7 K/mcL (0.0-1.3); Monocytes % 9.6 %; Neutrophils # 5.4 K/mcL (1.6-8.9); Platelet Count 182 K/mcL (140-400); Red Cell Distribution Width 15.3 % (11.5-14.5); Segmented Neutrophils % 77.7 %
[2019-08-18 05:24] LABS: BUN/Creatinine Ratio 45 (6-26); Blood Urea Nitrogen 29 mg/dL (8-23); Carbon Dioxide 26 mEq/L (23-29); Chloride 105 mEq/L (98-107); Glucose 143 mg/dL (70-105); Magnesium 2.1 mg/dL (1.6-2.6); Osmolality,Calculated 296 (280-300); Phosphorous 2.5 mg/dL (2.7-4.5); Potassium 3.1 mEq/L (3.5-5.1); Sodium 139 mEq/L (136-145); eGFR For African Americans > 60 (> 60); eGFR For Non-African Americans > 60 (> 60)
[2019-08-18] MEDS: Insulin LISPRO 300 UNITS/3 ML VIAL SQ SCH ×4 (08:54→21:00)
[2019-08-18] MEDS: Ranolazine 500 MG TAB.ER.12H PO SCH ×2 (08:58→22:38)
[2019-08-18] MEDS: Ascorbic Acid 500 MG TABLET PO SCH ×2 (08:58→17:24)
[2019-08-18] MEDS: Isosorbide MONOnitrate (24 HR) 30 MG TAB.ER.24H PO SCH (08:59)
[2019-08-18] MEDS: Rivastigmine Patch 9.5 MG PATCH.TD24 TD SCH (08:59)
[2019-08-18] MEDS: DilTIAZem CD (24hr) 120 MG CAP.ER.24H PO SCH (08:59)
[2019-08-18] MEDS: Multivit/Ca/Min/Fe/FA 1 TAB TABLET PO SCH (08:59)
[2019-08-18] MEDS: QUEtiapine Fumarate 25 MG TABLET PO SCH ×2 (08:59→22:39)
[2019-08-18] MEDS: Furosemide 20 MG/2 ML VIAL IVP SCH ×2 (08:59→17:24)
[2019-08-18] MEDS: Artificial Tears SOLN 15 ML BOTTLE BOTH EYES SCH ×4 (09:00→22:39)
[2019-08-18] MEDS ORDERED: Metoprolol XL (24 HR) Succ 25 MG TAB.ER.24H PO SCH (09:00)
[2019-08-18] MEDS: Metoprolol XL (24 HR) Succ 50 MG TAB.ER.24H PO SCH (21:00)
[2019-08-18] MEDS: Melatonin 3 MG TABLET PO SCH (22:35)
[2019-08-18] MEDS: Divalproex Sodium 125 MG CAPSULE PO SCH (22:36)
[2019-08-18] MEDS: Sennosides 8.6 MG TABLET PO SCH (22:38)
[2019-08-19] MEDS: Insulin LISPRO 300 UNITS/3 ML VIAL SQ SCH ×4 (07:59→20:46)
[2019-08-19] MEDS: Isosorbide MONOnitrate (24 HR) 30 MG TAB.ER.24H PO SCH (11:10)
[2019-08-19] MEDS: Aspirin Enteric Coated 81 MG Tablet PO SCH (11:10)
[2019-08-19] MEDS: Ranolazine 500 MG TAB.ER.12H PO SCH ×2 (11:10→21:29)
[2019-08-19] MEDS: DilTIAZem CD (24hr) 120 MG CAP.ER.24H PO SCH (11:11)
[2019-08-19] MEDS: Metoprolol XL (24 HR) Succ 50 MG TAB.ER.24H PO SCH ×2 (11:11→21:30)
[2019-08-19] MEDS: Ascorbic Acid 500 MG TABLET PO SCH ×2 (11:11→18:03)
[2019-08-19] MEDS: Multivit/Ca/Min/Fe/FA 1 TAB TABLET PO SCH (11:11)
[2019-08-19] MEDS: QUEtiapine Fumarate 25 MG TABLET PO SCH ×2 (11:11→21:30)
[2019-08-19] MEDS: Rivastigmine Patch 9.5 MG PATCH.TD24 TD SCH (11:11)
[2019-08-19] MEDS: Furosemide 20 MG/2 ML VIAL IVP SCH ×2 (11:12→18:15)
[2019-08-19] MEDS ORDERED: Potassium Phosphate 44 MEQ in 0.9 % Sodium Chloride 250 ML IVPB ONE (12:13)
[2019-08-19] MEDS: Potassium Chloride Elixir 20 MEQ/15 ML UDC PO SCH ×2 (13:37→13:40)
[2019-08-19] MEDS: Artificial Tears SOLN 15 ML BOTTLE BOTH EYES SCH (21:20)
[2019-08-19] MEDS: Divalproex Sodium 125 MG CAPSULE PO SCH (21:23)
[2019-08-19] MEDS: Melatonin 3 MG TABLET PO SCH (21:28)
[2019-08-19] MEDS: Sennosides 8.6 MG TABLET PO SCH (21:29)
[2019-08-20 03:08] LABS: Basophils % 0.4 %; Eosinophils # 0.1 K/mcL (0.0-0.6); Eosinophils % 1.4 %; Hematocrit 28.9 % (37.5-50.1); Hemoglobin 9.2 g/dL (12.9-16.9); Immature Granulocytes % 1.6 % (0-4); Lymphocytes # 0.8 K/mcL (0.6-4.6); Lymphocytes % 11.9 %; Mean Corpuscular HGB Conc 31.8 g/dL (31.6-35.5); Mean Corpuscular Hemoglobin 28.1 pg (28.0-33.3); Mean Corpuscular Volume 88.4 fL (83.0-100.0); Mean Platelet Volume 9.6 fL (9.4-12.4); Monocytes # 0.8 K/mcL (0.0-1.3); Monocytes % 11.5 %; Neutrophils # 5.2 K/mcL (1.6-8.9); Platelet Count 218 K/mcL (140-400); Red Blood Count 3.27 M/mcL (4.19-5.50); Red Cell Distribution Width 15.4 % (11.5-14.5); Segmented Neutrophils % 73.2 %; White Blood Count 7.1 K/mcL (4.3-11.1)
[2019-08-20 03:25] LABS: BUN/Creatinine Ratio 37 (6-26); Blood Urea Nitrogen 32 mg/dL (8-23); Calcium 8.3 mg/dL (8.6-10.3); Carbon Dioxide 29 mEq/L (23-29); Chloride 100 mEq/L (98-107); Glucose 162 mg/dL (70-105); Osmolality,Calculated 298 (280-300); Phosphorous 2.9 mg/dL (2.7-4.5); Potassium 3.3 mEq/L (3.5-5.1); Sodium 139 mEq/L (136-145); eGFR For African Americans > 60 (> 60); eGFR For Non-African Americans > 60 (> 60)
[2019-08-20] MEDS ORDERED: Furosemide 20 MG TABLET PO SCH (08:00)
[2019-08-20] MEDS: Rivastigmine Patch 9.5 MG PATCH.TD24 TD SCH (10:15)
[2019-08-20] MEDS: Isosorbide MONOnitrate (24 HR) 30 MG TAB.ER.24H PO SCH (10:15)
[2019-08-20] MEDS: Ranolazine 500 MG TAB.ER.12H PO SCH (10:15)
[2019-08-20] MEDS: Aspirin Enteric Coated 81 MG Tablet PO SCH (10:16)
[2019-08-20] MEDS: DilTIAZem CD (24hr) 120 MG CAP.ER.24H PO SCH (10:16)
[2019-08-20] MEDS: Multivit/Ca/Min/Fe/FA 1 TAB TABLET PO SCH (10:16)
[2019-08-20] MEDS: QUEtiapine Fumarate 25 MG TABLET PO SCH (10:16)
[2019-08-20] MEDS: Metoprolol XL (24 HR) Succ 50 MG TAB.ER.24H PO SCH (10:16)
[2019-08-20] MEDS: Ascorbic Acid 500 MG TABLET PO SCH (10:16)
[2019-08-20] MEDS: Insulin LISPRO 300 UNITS/3 ML VIAL SQ SCH (10:17)
[2019-08-20] MEDS: Artificial Tears SOLN 15 ML BOTTLE BOTH EYES SCH (10:18)
[2019-08-20 10:50] VITALS: BP 159/79
== END 2019-08-20 11:45 | DRG 467 ==
LOC: EMEROOARM 22:49 → SUATTDRO 08-12 00:38 → 3NENU 08-12 00:38
PROVIDERS: ADMIT Internal Medicine; ATTEND Internal Medicine